=== PATIENT | male | born 2000 | race Caucasian/White ===

== ENCOUNTER 2024-03-25 09:55 | Emergency (ER) | payer OTHER, SELFPAY ==
--- NOTE | ~2024-03-25 | XR_ITS ---
Left ankle Technique: AP, oblique, and lateral views were obtained. Clinical History: Pain Findings: No acute fracture or dislocation is seen. Osseous alignment is anatomic. Ankle mortise and other visualized joint spaces are preserved. Soft tissues are otherwise unremarkable. Impression: Unremarkable left ankle. Reviewed, dictated and finalized at location . [employer] Impression: Unremarkable left ankle.
[2024-03-25 10:10] VITALS: BP 129/69; PULSE 102; RESP 16; TEMP 37; O2SAT 99
--- NOTE | 2024-03-25 10:57 | ED.LOWEXIN ---
HPI - Extremity Injury (Lower) General Chief Complaint: Extremity Injury, Lower Stated Complaint: right ankle issue Time Seen by Provider: 03/25/24 11:00 Source: patient, RN notes reviewed and old records reviewed Mode of arrival: ambulatory Limitations: no limitations History of Present Illness HPI Narrative: Patient presents with complaints of left ankle swelling. He reports that he rolled the ankle just prior to arrival this morning and immediately had swelling.. He reports he has pain only with weight-bearing. He applied ice for about 20 minutes before leaving the house. He has not taken any medication for his symptoms. Denies any numbness or tingling. He is observed ambulating with steady gait, no limping. He denies other injury and trauma, voices no other concerns or complaints at this time. Related Data Allergies Allergy/AdvReac Type Severity Reaction Status Date / Time No Known Drug Allergies Allergy Unknown unknown Verified 03/25/24 10:09 Review of Systems Review of Systems: All systems reviewed & are unremarkable except as noted in HPI and below Constitutional: Constitutional: Reports no additional constitutional complaints ENT: Reports system reviewed and no additional complaints, except as documented Cardiovascular: Cardiovascular: Reports no additional cardiovascular complaints Respiratory: Respiratory: Reports no additional respiratory complaints Gastrointestinal: Gastrointestinal: Reports no additional gastrointestinal complaints Musculoskeletal: Musculoskeletal: Reports no additional musculoskeletal complaints and Reports as per HPI [facility] Social History Social History Smoking status: Never smoker Second hand tobacco smoke exposure: Yes Alcohol intake: current Substance use: never Substance use type: does not use Comments At the time of my signature, I reviewed and agree with the nursing past medical, surgical, social, and family history. There is no relevant family history pertinent to the patient complaint. Exam Const: General: cooperative, no acute distress, alert and awake Orientation/consciousness: oriented to person, oriented to place and oriented to time HENMT: Head: normal to inspection Resp: Effort & Inspection: normal respiratory effort and able to speak in complete sentences Auscultation: clear to auscultation bilaterally, no crackles, no rales, no rhonchi and no wheezes Cardio: Palpation: normal PMI Rate: regular rate Rhythm: regular rhythm Heart sounds: S1 normal heart sound present and S2 normal heart sound present Neuro: General: oriented to person, oriented to place and oriented to time Cranial nerves: Yes CN's II-XII intact bilaterally Extrem: Left lower extremity: ankle Details: swelling Details: medially and normal ROM; no tenderness and no ecchymosis and foot Details: normal capillary refill, toes with normal ROM and vascular exam Details: dorsalis pedis pulse present; no tenderness Psych: Appearance: grossly normal Thought process: Normal thought process present Insight: Good insight present (Psych) Judgement: Good judgement present (Psych) Course Course Level of Care: Express Care Visit Vital Signs Vital signs: Vital Signs Temperature 98.6 F 03/25/24 10:10 Pulse Rate 102 H 03/25/24 10:10 Respiratory Rate 16 03/25/24 10:10 Blood Pressure 129/69 03/25/24 10:10 Pulse Oximetry 99 03/25/24 10:10 Oxygen Delivery Room Air 03/25/24 10:10 Temperature 98.6 F 03/25/24 10:10 Pulse Rate 102 H 03/25/24 10:10 Respiratory Rate 16 03/25/24 10:10 Blood Pressure 129/69 03/25/24 10:10 Pulse Oximetry 99 03/25/24 10:10 Oxygen Delivery Room Air 03/25/24 10:10 Reviewed MDM - Extremity Injury (Lower) MDM Narrative Medical decision making narrative: Patient with left ankle injury. No fracture noted. Gerard wrap applied. Supportive care measures discussed. Importance of follow-up discussed. Discharge instructions reviewed with patient, as well as provided in writing per nursing staff. The instructions also include specific and strict return/GO TO THE ER as well as f/u information. All questions have been answered, and the patient deny any further questions with discharge and discharge plan. Some parts of this dictation were generated by voice recognition software and may contain typographical and/or grammatical inaccuracies. Differential Diagnosis Differential diagnosis: Likely ankle sprain and strain and ankle fracture Medical Records Attestation: I reviewed the patient's medical records. Imaging Data My impression: Negative Radiologist's impression: [facility] [address] [place] [address] XRay Report Signed Patient: Pineda Cohen : 2000 MR#: [id number] Age: 23 Acct:[id number] Loc: [facility] ADM Date: 03/25/24Attending Dr: Ordering Physician: Cora Noland FNP Date of Service: 03/25/24 Procedure(s): XR ankle LT min 3V Accession Number(s): [id number] cc: Cora Noland FNP; Alexandra Monet MD~ Left ankle Technique: AP, oblique, and lateral views were obtained. Clinical History: Pain Findings: No acute fracture or dislocation is seen. Osseous alignment is anatomic. Ankle mortise and other visualized joint spaces are preserved. Soft tissues are otherwise unremarkable. Impression: Unremarkable left ankle. Reviewed, dictated and finalized at location . [employer] Dictated By: Trey Del Toro MD 03/25/24 1032 Signed By: <Electronically signed by Trey Del Toro MD in OV> 03/25/24 1032 Discharge Plan Discharge Clinical Impression: Ankle sprain and strain Patient Disposition: Home, Self-Care Condition: Stable Instructions: Antibiotic Form, P.R.I.C.E. Treatment (ED) Additional Instructions: Take medications as prescribed. Elevate the extremity as much as practical. Follow up primary care provider. Emergency department for new or worse symptoms Patient Language: Citizen Of [place] Prescriptions: New ibuprofen 600 mg tablet 600 mg PO TID PRN (Reason: pain) Qty: 20 0RF Follow-up/Referrals: Alexandra Monet MD [Primary Care Provider] - 1 Week Stand Alone Forms: Work/School Release IP Time of Disposition: 11:10
== END 2024-03-25 11:13 | disposition home or self-care (01) ==
PROVIDERS: Emergency Provider Nurse Practitioner Family; PCP Pediatrics
DX: S93.402A Sprain of unspecified ligament of left ankle, initial encounter (principal); S96.912A Strain of unspecified muscle and tendon at ankle and foot level, left foot, initial encounter; X50.9XXA Other and unspecified overexertion or strenuous movements or postures, initial encounter
CPT/HCPCS: 73610; 99213; G0463